=== PATIENT | female | born 1965 | race Caucasian/White ===

== ENCOUNTER → 2021-09-28 | Outpatient (CLI) | payer OTHER | LOC: M WHC 14:39 | PROVIDERS: ATTEND Emergency Medicine | DX: R92.2 Inconclusive mammogram (principal); N63.41 Unspecified lump in right breast, subareolar ==

== ENCOUNTER → 2021-10-16 | Outpatient (CLI) | payer OTHER | LOC: M WHC 10:55 | PROVIDERS: ATTEND Emergency Medicine | DX: N63.10 Unspecified lump in the right breast, unspecified quadrant (principal) ==

== ENCOUNTER → 2023-06-12 | Outpatient (CLI) | payer OTHER | LOC: M WHC 13:42 | PROVIDERS: ATTEND Student in an Organized Health Care Education/Training Program | DX: Z12.31 Encounter for screening mammogram for malignant neoplasm of breast (principal); Z76.89 Persons encountering health services in other specified circumstances ==

== ENCOUNTER → 2024-08-16 | Outpatient (CLI) | payer OTHER | LOC: M WHC 14:13 | PROVIDERS: ATTEND Nurse Practitioner Family | DX: Z12.31 Encounter for screening mammogram for malignant neoplasm of breast (principal); R92.323 Mammographic fibroglandular density, bilateral breasts ==

== ENCOUNTER 2024-09-28 11:45 | Emergency (ER) | payer OTHER ==
[~2024-09-28] VITALS: Ht 170.2 cm; Wt 98.5 kg
[2024-09-28] MEDS ORDERED: SIMV40TA20 PO (11:59)
[2024-09-28] MEDS ORDERED: NORV5TAB PO (11:59)
[2024-09-28] MEDS ORDERED: LOSA100T46 PO (11:59)
[2024-09-28] MEDS: OXYMETAZOLINE 0.05% NASAL SPRAY ONE (15:41)
[2024-09-28 16:08] VITALS: BP 139/90; TEMP 98; O2SAT 99
== END 2024-09-28 16:10 | disposition home or self-care (01) ==
LOC: M ED 11:45
DX: R04.0 Epistaxis (principal); I10 Essential (primary) hypertension; Z79.899 Other long term (current) drug therapy